=== PATIENT | male | born 1985 ===

== ENCOUNTER 2024-05-27 05:53 | Day surgery (SDC) | payer OTHER, SELFPAY ==
[2024-05-27] VITALS (35 sets, daily range): BP systolic 112–135; BP diastolic 68–96; PULSE 51–92; RESP 7–23; TEMP 36.1–36.7; O2SAT 88–100; BMI 33.0
--- NOTE | 2024-05-27 06:39 | W.ANESPRE ---
General Info Date of Service Date Performed: 05/27/24 Height: 5 ft 11 in Weight: 107.501 kg Body Mass Index (BMI): 33.0 Surgical Procedure: Operation Date: 05/27/24 07:40 Proposed Procedure Side Surgeon p Shoulder Open Acromioclavicular Joint Reconstruction w/Allograft Right Gil De La Paz MD Meds Allergies and Home Medications Allergies Allergy/AdvReac Type Severity Reaction Status Date / Time Penicillins Allergy Severe Anaphylaxis Verified 05/27/24 06:12 aspirin Allergy Unknown Unknown Verified 05/27/24 06:12 Home Medication ?Medication ?Instructions ?Recorded acetaminophen 500 mg tablet 500 mg PO Q6H PRN 01/13/24 ibuprofen 600 mg tablet 600 mg PO TID 01/13/24 olanzapine 2.5 mg tablet 10 mg PO DAILY 01/13/24 WEDGE PILLOW #1 ea 04/06/24 methadone 10 mg tablet 135 mg PO DAILY 04/06/24 calcium carbonate (Calcium 500) 1,000 mg PO DAILY 05/23/24 omeprazole 40 mg capsule,delayed 40 mg PO DAILY 05/23/24 release Current Visit Medications: Current Medications Generic Name Dose Route Start Last Admin Trade Name Freq PRN Reason Stop Dose Admin Ringer's Solution 1,000 mls @ 30 mls/hr 05/27/24 06:00 IV 05/27/24 23:59 INFUSION PAULY Cefazolin Sodium 3,000 mg/ 100 mls @ 200 mls/hr 05/27/24 06:00 Sodium Chloride IV 05/27/24 23:59 PREOP PAULY Tranexamic Acid/Sodium Chloride 1,000 mg in 100 mls @ 600 mls/hr 05/27/24 06:00 IVPB 05/27/24 23:59 PREOP PAULY IV Miscellaneous Supplies 1 each 05/27/24 06:00 Iv Access IV 05/27/24 23:59 DIRECTED PAULY Sodium Chloride 0 ml 05/27/24 06:00 Normal Saline Flush 10 Ml Syr IV 05/27/24 23:59 PRN PRN Sodium Chloride 0 ml 05/27/24 06:00 Normal Saline 10 Ml Vial IJ 05/27/24 23:59 DIRECTED PRN Sterile Water 0 ml 05/27/24 06:00 Water,Injection,Sterile 10 Ml Vial IJ 05/27/24 23:59 DIRECTED PRN PFSH Active Problems Active Problems: Problem Status Onset Code Drug abuse Acute F19.10 Acromioclavicular joint separation Acute ~11/2022 S43.109A Medical History Medical History Abscess Per [facility] as a few abscess in his (R) axilla not infected Dermatitis Hepatitis C tx and resolved HLD (hyperlipidemia) GERD (gastroesophageal reflux disease) Bipolar II disorder Surgical History Surgical History Hx of facial fracture repair left cheek Hx of inguinal hernia repair right Hx of rotator cuff surgery Left Tobacco Smoking/Tobacco Use Status: Unknown Alcohol Alcohol Intake: former Substance Use Substance use: Current Sobriety Substance use type: former substance user Vital Signs and Lab Results Vital Signs Most Recent Vital Signs in EMR: Most Recent Vital Signs Temp Pulse Resp BP Pulse Ox 36.4 C L 77 16 126/77 98 05/27/24 06:21 05/27/24 06:21 05/27/24 06:21 05/27/24 06:21 05/27/24 06:21 Lab Results Blood Type / Crossmatch: No Data to Display Complete Blood Count: No Data to Display Complete Metabolic Panel: No Data to Display Liver Function Panel: No Data to Display Coagulation Panel: No Data to Display Cardiac Panel: No Data to Display Arterial Blood Gas: No Data to Display Venous Blood Gas: No Data to Display Pancreas Panel: No Data to Display Thyroid Panel: No Data to Display Infectious Disease: No Data to Display Blood Cultures: No Data to Display Toxicology Panel: No Data to Display Imaging and Studies Imaging and Studies Study information below may be from another EMR and interpreted by another provider. Please see original notes in EMR for more complete details. EKG Summary: 01/28/24: Sinus Bradycardia Anesthesia Assessment and Plan Anesthesia History Personal History: No History of Anesthesia Complications Family History: Family History Unknown Exercise Tolerance Exercise Tolerance: Metabolic Equivalents>4 Pertinent Negatives Pertinent Negatives: No Symptoms of GERD, No Major Cardiovascular Symptoms or Complaints and No Major Pulmonary Symptoms or Complaints Cardiac & Pulmonary Exam Cardiac Exam: Normal S1/S2 Heart Sounds Pulmonary Exam: Clear Bilateral Breath Sounds Implantable Cardiac Device Does patient have a Pacemaker or an ICD?: No Airway Exam Known Difficult Airway: No Mallampati Class: 1 Mouth Opening: Normal (> 3cm) Thyromental Distance: Greater than 3 cm Neck Range of Motion: Full ROM Neck Circumference: Normal Teeth Condition: Normal Dentition (Several chipped teeth, none loose) ASA Classification ASA Score: ASA 2 Emergency Case?: No NPO Status NPO Status: NPO Clears >2 hours, Solids >8 hours Anesthesia Plan Resuscitation Status: Full Code Anesthesia Technique: General Anesthesia Airway Planned: Endotracheal Tube Pain Management: Surgeon and patient request nerve block Monitors Used: Standard Monitors and SedLine
[2024-05-27] MEDS: Lactated Ringers 1,000 ML 30 ML IV (06:50)
--- NOTE | 2024-05-27 07:08 | PDOC.DSDIS_ITS ---
Date of service: 05/27/24 Discharge Plan Disposition Patient Disposition: Home Condition: Stable Discharge Details Attending Provider: Gil De La Paz Primary Care Provider: Unknown,Unknown Home Meds and New Rx's Prescriptions: Continued olanzapine 2.5 mg tablet 10 mg PO DAILY ibuprofen 600 mg tablet 600 mg PO TID acetaminophen 500 mg tablet 500 mg PO Q6H PRN methadone 10 mg tablet 135 mg PO DAILY (DME) WEDGE PILLOW See Rx Instructions .Route .MEDSUPPLY Qty: 1 0RF Rx Instructions: As directed. MEDICALLY NECESSARY TO SUPPORT RIGHT SHOULDER INJURY AND POST OP calcium carbonate [Calcium 500] 500 mg calcium (1,250 mg) tablet,chewable 1,000 mg PO DAILY omeprazole 40 mg capsule,delayed release(DR/EC) 40 mg PO DAILY Discharge Instructions Additional Instructions: Surgery: Right shoulder open acromioclavicular joint reconstruction with allograft. Activity: For 6 weeks, you should keep your arm at your side in a neutral position at all times except for physical therapy. Do not try to lift or raise your arm using your own muscles. You should use the sling most of the time unless your forearm/elbow is supported/elevated on pillows. Avoid stressing the repair with gravity. Do NOT allow the arm to dangle at your side. Physical therapy instructions: Encouraged increasing range of motion hand, wrist, and elbow. Avoid any active or passive shoulder range of motion for 3 weeks then gently progress passive shoulder range of motion below 90 degrees f orward elevation. After 6 weeks, encourage increasing active assisted and then gently progress active range of motion to full after 8 weeks. No strengthening for 3+ months. Prescriptions: Paper prescriptions provided to corrections facility Wedge pillow to support operative shoulder Naproxen 250 mg take 1-2 every 12 hours with a meal as needed for moderate pain (do not use at the same time as ibuprofen) Oxycodone 5 mg take 1-2 every 4-6 hours as needed for severe pain (only for severe breakthrough pain) You may use [id number] Tylenol (acetaminophen) as needed for mild pain. These pain medications may be taken all at once or in different combinations as needed. Also, recommend Colace (docusate) as a stool softener as surgery and pain medicine cause constipation. You may try [id number] diphenhydramine (Benadryl) 25-50 mg nightly as a sleep aid Dressings: Leave shoulder Band-Aid in place until follow-up. Do not shower or get wet. Follow-up: 10-[address] De La Paz You may take off the leg compression stockings this evening at home. You may also leave them on a few days longer if you have a history of leg swelling or edema. Let us know right away if you develop any redness, drainage, fevers, chest pain, or trouble breathing. Do not drink alcohol or drive for at least 24 hours after anesthesia. Please call the office during business hours with any questions or concerns. Discharge Orders Discharge Orders: Discharge Order (Routine); Ordered 05/27/24 Ordered By: Sue Mcnally DS: Diagnosis Discharge Diagnosis (1) Acromioclavicular joint separation: Status: Acute
--- NOTE | 2024-05-27 07:48 | ROE_ITS ---
Operative Note Operative Note PRE-OP DIAGNOSIS: 1. 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 Open acromioclavicular joint reconstruction with allograft, CPT #45352: This involved open reduction of AC joint and permanent suture tape and allograft tendon fixation of the distal clavicle to the acromion 2. Open distal clavicle excision, CPT #2 07/24/2019: This involved open removal of the distal end of the clavicle about 5 mm of abnormal osteolytic bone SURGEON: Gil De La Paz [employer] TENDER: Sue Mcnally ANESTHESIA TYPE: Local By Surgeon, General LMA/ETT and Primary Nerve Block Refer to Anesthesia Record ESTIMATED BLOOD LOSS: 5 COMPLICATIONS: None Patient was transported to: PACU Patient's condition: stable Implants: 2x FiberTape and gracilis tendon allograft 4 x 240 mm Indications: Please see complete medical record for details. Findings: Moderately high riding, significantly unstable?largely in the horizontal plane?distal clavicle relative to the acromion. Abnormal osteolytic distal most end of the clavicle. Procedure Description: In the operating room, general anesthesia was induced. The patient was positioned beachchair on the operating room table. All bony prominences were well-padded. Preoperative antibiotics were administered. The right shoulder was prepped and draped in the usual sterile fashion. The correct patient, procedure, and side of the procedure were all verified prior to incision. A moderate longitudinal incision was preinjected with 0.25% bupivacaine containing epinephrine and then openedcentered over the AC joint. The distal clavicle was readily exposed in its elevated position taking care to raise full- thickness layers. Elevators used to expose the superior bone, rongeur was used to remove interposed scar tissue, and the distal end of the clavicle was inspected. It was softened and abnormally shaped consistent with painful osteolysis so about 5 mm was removed to more normal contour and solid bone as part of a distal clavicle excision to help minimize postoperative pain. The superior AC joint capsule was incised and continued over to the adjacent lateral acromion again raising full-thickness flaps for later repair. The graft was prepared with fiber loop on both ends on the back table measured 4 mm x 240 mm gracilis. About 1 cm off the joint margin on the acromion and from the distal clavicle excision 2 drill holes were made superior to inferior protecting inferiorly with a Marx starting with a 3.5 mm drill spaced appropriately apart on both the distal end of the clavicle and medial acromion and then enlarged with a 4.2 mm drill to accommodate both the graft and FiberTapes. The 90 degree lasso was used to shuttle 2 FiberLinks, which were then used to sh uttle each tail of the graft through the distal clavicle from inferior to superior taking care to even out the tails of the graft as well as the FiberTape's. Showing was repeated with the ends of the construct being draped over the superior aspect of the distal clavicle, inferior through the AC joint and then brought up through the holes in the medial acromion. There was nice nondenominational of clavicle height and excellent horizontal stability with provisional tensioning on the graft. The clavicle was held in place in the forearm supported and initial FiberTape was tied. The repair had good position and tension and the second FiberTape was then tied. Lastly that tails of the graft were weaved and then secured with suture tape. There was additional length on the allograft talus which was then brought back across the AC joint and secured over the construct with 2-0 Monocryl. The construct was tested and quite stable and secure. The wound was copiously irrigated. The preserved thickened full-thickness deep layers of fascia capsule and periosteum were closed tightly using 2-0 Monocryl [id number]. Superficial layers were irrigated and then subcutaneous layers closed in 2-0 Monocryl buried erupted followed by 3-0 Monocryl running subcuticular. Skin glue was applied over the incision followed by Mepilex bandage. The patient awoke from anesthesia without complication and was transferred to the recovery room in a stable condition. Date of Procedure: 05/27/24
[2024-05-27] MEDS: ceFAZolin 3,000 MG in Normal Saline 100 ML 200 MG IV (07:57)
[2024-05-27] MEDS: TRANEXAMIC ACID/SOD. CHL. 1,000 MG/100 ML BAG 600 MG IVPB (08:04)
[2024-05-27] MEDS: Bupivacaine 0.25% Pres-Free W/EPI 30 ML VIAL (08:21)
--- NOTE | 2024-05-27 08:37 | W.ANESNERVE ---
Nerve Block Single Injection Procedure Date and Time Date Performed: 05/27/24 Procedure Start: 07:22 Location Where Procedure Performed Procedure Location: Day Surgery Unit Reason Performed: Postoperative Analgesia Requesting Provider: Gil De La Paz Timeout Performed Timeout Performed: Yes Monitoring Used ECG, Blood Pressure, SpO2 and See EMR for corresponding vital signs Sterility Sterility: Hand Hygiene, Surgical Cap, Surgical Mask, Sterile Gloves and Chlorhexidine Sedation Given During Procedure Sedation Given (Indicate Dose Given): Versed IV Dose:: 2mg and Precedex IV Dose:: 4mcg Patient Mental Status Patient Mental Status: Sedate with meaningful communication Nerve Block 1st Nerve Block: Laterality: Right Block Type: Interscalene (Low) Ultrasound Image Saved?: Yes Needle / Catheter Used: 100mm SonoPlex II Local Anesthetic Bolus (Indicate Dose Given): Lidocaine used for local infiltration of skin, Injected in 3-5ml increments after negative blood aspiration, Bupivacaine 0.5% Dose:: 10mL and Exparel Dose:: 10mL Additives (Indicate Dose Given): None Ultrasound: Sterile probe cover and gel used Nerve Stimulator: Supplement to Ultrasound use and No twitch or parasthesia noted < 0.5 mA Paresthesia: None Procedure Tolerated: Patient tolerated well Procedure Outcome: Successful Performed By: Angi Rousseau
--- NOTE | 2024-05-27 10:21 | W.ANESPOSTOP ---
Postoperative Evaluation Date, Time and Location Date Performed: 05/27/24 Time Performed: 10:21 Patient Location: PACU Vital Signs Most Recent Imported Vital Signs: Most Recent Vital Signs Temp Pulse Resp BP Pulse Ox 36.7 C 69 17 124/69 99 05/27/24 10:16 05/27/24 10:16 05/27/24 10:11 05/27/24 10:16 05/27/24 10:16 Pain Score Most Recent Pain Score: Most Recent Pain Score Pain Level 5 05/27/24 10:14 Assessment Mental Status: Awake (Alert & Oriented to Patient Baseline) Airway and Respiratory Function: Patent airway with normal (patient baseline) respiratory exam Cardiovascular Function: Hemodynamically Stable Hydration Status: Adequately Hydrated Nausea & Vomiting: No Nausea or Vomiting Pain: Pain is tolerable per patient Peripheral Nerve Block: Regional nerve block not resolved at time of post operative discharge
[2024-05-27] MEDS: HYDROmorphone 1 MG/ML SYR IVP ×2 (10:27→10:37)
== END 2024-05-27 12:12 | disposition home or self-care (01) ==
PROVIDERS: Visit Provider Student in an Organized Health Care Education/Training Program
PROC: (CPT 23130; principal; 2024-05-27 07:30)
DX: S43.101A Unspecified dislocation of right acromioclavicular joint, initial encounter (principal); X58.XXXA Exposure to other specified factors, initial encounter; M89.511 Osteolysis, right shoulder
CPT/HCPCS: 23552; 23120; 64415; J0131; J0665; J0666; J0690; J1100; J1171; J1596; J1885; J2003; J2250; J2371; J2405; J2704; J3370

== ENCOUNTER 2024-06-08 16:02 | Outpatient (CLI) | payer OTHER, SELFPAY ==
--- NOTE | 2024-06-08 14:15 | DI.RAD_ITS ---
Exam(s) XR SHOULDER RT 1V EXAM: XR SHOULDER RT 1V CLINICAL HISTORY: F/U SURGERY. TECHNIQUE: 2D digital imaging was performed. Single AP view. COMPARISON: DX SHOULDER RIGHT from 01/08/2023 FINDINGS: BONES: No acute fracture is present. No bony destructive lesion is seen. Status post resection of di stal clavicle. JOINTS: No dislocation present. SOFT TISSUE: Normal. IMPRESSION: Unre status post resection of distal clavicle. DATA REPOSITORY: RADIATION DOSE DELIVERED:
== END 2024-06-08 16:03 | disposition home or self-care (01) ==
LOC: DIORS 16:02
PROVIDERS: Visit Provider Student in an Organized Health Care Education/Training Program
DX: S43.101D Unspecified dislocation of right acromioclavicular joint, subsequent encounter (principal); X58.XXXD Exposure to other specified factors, subsequent encounter
CPT/HCPCS: 73020

== ENCOUNTER 2024-07-20 15:05 | Outpatient (CLI) | payer OTHER, SELFPAY ==
--- NOTE | 2024-07-20 14:00 | DI.RAD_ITS ---
Exam(s) XR SHOULDER RT 1V EXAM: XR SHOULDER RT 1V CLINICAL HISTORY: F/U ACJ RECONSTRUCTION. TECHNIQUE: 2D digital imaging was performed of the right shoulder. One images were obtained. AP vi ews were obtained. COMPARISON: DX SHOULDER RIGHT from 01/08/2023 CR XR SHOULDER RT 1V from 06/08/2024 FINDINGS: A single AP view of the right shoulder was obtained. There has been further reconstructive changes o f the acromioclavicular joint since the prior examination. The glenohumeral joint is well maintained . The soft tissues are unremarkable. IMPRESSION: Interval right AC joint reconstruction. DATA REPOSITORY: RADIATION DOSE DELIVERED:
== END 2024-07-20 15:06 | disposition home or self-care (01) ==
LOC: DIORS 15:05
PROVIDERS: Visit Provider Student in an Organized Health Care Education/Training Program
DX: S43.101D Unspecified dislocation of right acromioclavicular joint, subsequent encounter (principal); X58.XXXD Exposure to other specified factors, subsequent encounter
CPT/HCPCS: 73020